=== PATIENT | female | born 1945 | race Caucasian/White ===

== ENCOUNTER 2016-09-02 16:01 | Day surgery (SDC) | payer MEDICARE ==
[~2016-09-02] VITALS: Ht 162.6 cm; Wt 87.0 kg
[2016-09-02 17:15] VITALS: BP 152/89; PULSE 56; RESP 16; O2SAT 98
[2016-09-02] MEDS ORDERED: AMLO5TAB2 PO (17:26)
[2016-09-02] MEDS ORDERED: LOSA25TA21 PO (17:26)
[2016-09-02] MEDS ORDERED: SIMV20TA4 PO (17:26)
[2016-09-02] MEDS ORDERED: ATEN25TA PO (17:26)
[2016-09-02] MEDS ORDERED: HYDR12.5 PO (17:26)
[2016-09-02] MEDS ORDERED: 0.9% Sodium Chloride 1,000 ML IV PRN (17:33)
[2016-09-02] MEDS ORDERED: Sodium Chloride LOK Flush 10 mL Syringe IV PRN (17:35)
[2016-09-02] MEDS ORDERED: fentaNYL-PF 50 mCg/mL 2 mL Inj IVPUSH PRN (17:35)
[2016-09-02 18:13] VITALS: BP 178/89; PULSE 80; RESP 14; O2SAT 98
--- NOTE | 2016-09-02 18:15 | PCM.ENDCOL ---
Colonoscopy Date of Service: Sep 02, 2016 Physician Phil Spring MD Pre Procedure Diagnosis: Screening history of diverticulitis Post Procedure Dx & Findings: Polyp hemorrhoids diverticuli Procedure Colonoscopy PROCEDURE IN DETAIL: Prep adequate Withdrawal time 14 minutes After unremarkable rectal examination the Olympus video colonoscope was inserted patient's anal canal and was advanced to cecum. Landmarks were identified including the ileocecal valve and appendiceal orifice. Scope was withdrawn systematically. Visualized colonic mucosa showed healthy shiny mucosa with normal healthy-appearing vasculature. In the transverse colon, there was a 1 mm polyp which was removed completely using cold forceps. Multiple small to large diverticuli noted in the sigmoid colon. Sigmoid colon has significant scarring and redundancy. In the rectum retroflexion was done which showed hemorrhoids. Anal canal was inspected carefully on the way out and hemorrhoids noted. Impression Polyps 1 as was complete removal Multiple diverticula with scarring Hemorrhoids Recommendation Repeat colonoscopy in 5 years Presedation Assessment Risks and Benefits Informed consent was obtained from the patient after all risks and benefits including but not limited to drug reaction, infection, pain, bleeding, perforation, as well as alternatives were discussed. Patient monitoring Continuous pulse oximetry, cardiac monitoring, blood pressure monitoring, IV access, and oxygen at 2L per nasal cannula. Complications There were no periprocedural complications identified. Post Procedure Plan Post Procedure Recommendations 1. Restrict activities today. 2. Resume normal activities in the morning. 3. Resume medications. 4. Patient informed of normal post procedure side effects as bloating, drowsiness, blood streaking in the stool. 5. average risk CRCS. If colon polyps come back as: -Hyperplastic- can repeat colonoscopy in 10 years -Tubular adenoma- repeat colonoscopy in 5 years -Tubulovillous/villous adenoma- repeat colonoscopy in 3 years -If any dysplasia- return to clinic as soon as possible 6. Please don't hesitate to call me with any questions. Phil Spring MD Sep 02, 2016 18:15
[2016-09-02 18:23] VITALS: BP 184/89; PULSE 64; RESP 16; O2SAT 100
--- NOTE | 2016-09-07 14:07 | PATH ---
SURGICAL PATHOLOGY Attending Physician:Phil Spring M.D. CASE STATUS: Signed Out PATIENT NAME: RAZ OLIVEIRA PID: [id number] : 1945 DATE COLLECTED:09/02/2016 00:00 SPECIMEN: Colon, Biopsy CLINICAL HISTORY: 1. TRANSVERSE COLON POLYP FINAL DIAGNOSIS: 1.TRANSVERSE COLON POLYP: POLYPOID-SHAPED FRAGMENT OF COLON MUCOSA CONSISTENT WITH MUCOSAL POLYPOID REDUNDANCY. Negative for evidence of neoplasm or hyperplasia on multiple serial sections. ICD10 K63.5 GROSS DESCRIPTION: The specimen is received in one formalin filled container labeled with the patient's name, sublabeled "transverse colon polyp" and consists of of a 0.1 x 0.1 x 0.1 CM portion of tissue which is entirely submitted in one cassette. 09/03/2016 [facility] MICRO DESCRIPTION: See diagnosis. ICD-9 CODES: CPT CODES: 1: 60767 Electronically Signed Out Tacos Garcia MD [facility] Pathology [facility] [address], [place] [address] Technical component performed at [facility], [facility] [address], [place], [address]
== END 2016-09-02 23:59 | disposition home or self-care (01) ==
LOC: END 16:01
PROVIDERS: ATTEND Internal Medicine
DX: Z12.11 Encounter for screening for malignant neoplasm of colon (principal); K63.5 Polyp of colon; K57.30 Diverticulosis of large intestine without perforation or abscess without bleeding; K64.8 Other hemorrhoids
CPT/HCPCS: 45380; 99153; G0500; J2250; J3010; J7030